=== PATIENT | female | born 1970 | race Caucasian/White ===

== ENCOUNTER 2018-10-06 14:31 | Emergency (ER) | payer OTHER ==
[~2018-10-06] VITALS: Ht 170.2 cm; Wt 113.4 kg
[~2018-10-06 14:31] MED LIST: BIRTH CONTROL
[2018-10-06] MEDS ORDERED: IV NORMAL SALINE 1000 ML BAG IV ONE (15:00)
[2018-10-06] MEDS ORDERED: KETOROLAC TROMETHAMINE 15 MG INJ IV ONE (15:00)
[2018-10-06] MEDS ORDERED: ONDANSETRON 4 MG/2 ML VIAL IV ONE (15:00)
[2018-10-06] MEDS ORDERED: HYDROMORPHONE 1 MG/1 ML DISP.SYRIN IV ONE (15:00)
[2018-10-06] MEDS ORDERED: HYDROMORPHONE 2 MG/1 ML DISP.SYRIN ONE (15:06)
[2018-10-06] MEDS ORDERED: KETOROLAC TROMETHAMINE 30 MG INJ ONE (15:06)
[2018-10-06] MEDS ORDERED: ONDANSETRON 4 MG/2 ML VIAL ONE ×3 (15:06→17:14)
[2018-10-06 15:10] LABS: *BILIRUBIN,URIN NEGATIVE (NEGATIVE); *BLOOD, URINE 2+ (NEGATIVE); *CLARITY,URINE CLOUDY (CLEAR); *COLOR,URINE YELLOW (YELLOW); *KETONES,URINE NEGATIVE (NEGATIVE); *PROTEIN,URINE TRACE (NEGATIVE); *UROBILINOGEN,URINE 0.2 E.U./dl (NORMAL); LEUKOCYTE ESTERASE ,URINE 1+ (NEGATIVE); NITRITE, URINE NEGATIVE (NEGATIVE); PH,URINE 6.5 (5.0-8.0); UGLUCOSE NEGATIVE (NEGATIVE)
[2018-10-06 15:13] LABS: *URINE HCG, QUAL NEGATIVE (NEGATIVE)
[2018-10-06 15:20] LABS: BACTERIA,URINE MANY /HPF (NONE SEEN); RBC,URINE 20-50 /HPF (0-3); SQUAMOUS EPITHELIAL CELL,UR MODERATE /HPF (NONE SEEN)
[2018-10-06 15:21] LABS: CALCIUM OXALATE CRYSTALS,UR FEW /HPF (NONE SEEN); MUCUS,URINE MODERATE /LPF (0-FEW); URINE AMORPHOUS PHOSPHATES MODERATE /HPF
--- NOTE | 2018-10-06 15:32 | NUR ---
Patient is resting comfortably in bed with eyes closed, NAD noted.
--- NOTE | 2018-10-06 15:45 | NUR ---
Pt out of ER for CT.
--- NOTE | 2018-10-06 16:08 | NUR ---
Pt back from Ct, state pain is gone.
[2018-10-06] MEDS ORDERED: CEFTRIAXONE 1 G VIAL ONE (16:24)
[2018-10-06] MEDS ORDERED: CEFTRIAXONE 1 G in IV DEXTROSE 5% 50 ML IV ONE (16:30)
[2018-10-06] MEDS ORDERED: ONDANSETRON IV *ER 4 MG/2 ML VIAL IV ONE (17:15)
--- NOTE | 2018-10-06 17:59 | NUR ---
IV removed. Catheter intact and site benign. Pressure and 4x4 gauze applied to site. No bleeding noted.
--- NOTE | 2018-10-06 18:00 | NUR ---
Patient discharged to home in stable conditon. Written and verbal after care instructions given. Patient verbalizes understanding of instructions. Pt left Er accompained by family.
[2018-10-06 18:04] VITALS: BP 104/66
== END 2018-10-06 18:05 | disposition home or self-care (01) ==
LOC: ER 14:31
DX: N20.0 Calculus of kidney (principal); N39.0 Urinary tract infection, site not specified
CPT/HCPCS: 74176; 81001; 84703; 87086; 96365; 96375; 96376; 99284; J0696; J1170; J1885; J2405 ×2; A4663; J3490; J7030

== ENCOUNTER 2021-04-30 06:47 | Emergency (ER) | payer OTHER ==
[~2021-04-30] VITALS: Ht 165.1 cm; Wt 72.6 kg
[2021-04-30] MEDS ORDERED: IV NORMAL SALINE 1000 ML BAG IV ONE (07:30)
--- NOTE | 2021-04-30 07:37 | NUR ---
[employer] assumes care (1st contact with patient) She is AOX4, c/o severe left flank pains for 15 years but worse this morning, hx of chronic renal stones s/p lithotripsies. Her respiration:easy, nonlabored & symmetrical. For blood draw, IV line & CT scans@this time.
[2021-04-30 08:13] LABS: HEMATOCRIT 39.8 % (31.2-41.9); MEAN CORPUSCULAR HEMOGLOBIN 29.1 uug (24.7-32.8); MEAN CORPUSCULAR VOLUME 87.3 fL (75.5-95.3); PLATELET COUNT (AUTO) 231 K/uL (179-408)
[2021-04-30 08:27] LABS: BILIRUBIN,DIRECT 0.1 mg/dL (0.0-0.2); BILIRUBIN,TOTAL 0.3 mg/dL (0.2-1.0); POTASSIUM 4.6 mmol/L (3.5-5.1); TOTAL PROTEIN, SERUM 8.2 g/dL (6.4-8.2)
[2021-04-30] MEDS: KETOROLAC TROMETHAMINE 15 MG INJ IVP ONE ×2 (08:27→08:30)
--- NOTE | 2021-04-30 08:30 | NUR ---
Patient refused IV Toradol. "It doesn't work. Only Dilaudid works." per patient's verbalization. notified.
[2021-04-30] MEDS ORDERED: KETOROLAC TROMETHAMINE 15 MG INJ ONE (08:35)
--- NOTE | 2021-04-30 08:44 | NUR ---
Patient is seen walking with steady gait in ER hallway, still for CT scan.
[2021-04-30] MEDS ORDERED: HYDROCORTISONE SOD SUCCINATE 250 MG/2 ML ML ONE (08:45)
[2021-04-30] MEDS ORDERED: IV NORMAL SALINE 250 ML IV ONE (08:46)
[2021-04-30] MEDS ORDERED: SWABABLE VALVE TRANSFER SET EA MC ONE (08:46)
[2021-04-30] MEDS ORDERED: IOHEXOL 300MG/ML 100 ML INFUS..BTL ONE (08:46)
[2021-04-30] MEDS ORDERED: ALBUTEROL SULFATE 2.5 MG/3 ML NEBU ONE (08:47)
[2021-04-30] MEDS ORDERED: ALBUTEROL SULFATE 2.5 MG/ 0.5 ML NEBU ONE (08:47)
--- NOTE | 2021-04-30 08:49 | NUR ---
Patient does not want to move until her IV Dilaudid is given, MD notified.
[2021-04-30] MEDS ORDERED: ONDANSETRON 4 MG/2 ML VIAL ONE ×2 (09:00→11:19)
[2021-04-30] MEDS ORDERED: ONDANSETRON 4 MG/2 ML VIAL IV ONE ×2 (09:00→11:15)
[2021-04-30] MEDS ORDERED: HYDROMORPHONE 1 MG/1 ML DISP.SYRIN IV ONE ×2 (09:00→10:15)
--- NOTE | 2021-04-30 09:00 | NUR ---
Vera arguelles in [facility] - 04/30/21 at [address] Youngerbedside
[2021-04-30] MEDS ORDERED: HYDROMORPHONE 1 MG/1 ML DISP.SYRIN ONE ×2 (09:01→10:20)
[2021-04-30 09:41] LABS: *BILIRUBIN,URIN NEGATIVE (NEGATIVE); *BLOOD, URINE 2+ (NEGATIVE); *CLARITY,URINE CLOUDY (CLEAR); *COLOR,URINE YELLOW (YELLOW); *KETONES,URINE NEGATIVE (NEGATIVE); *UROBILINOGEN,URINE 0.2 E.U./dl (NORMAL); LEUKOCYTE ESTERASE ,URINE TRACE (NEGATIVE); NITRITE, URINE NEGATIVE (NEGATIVE); UGLUCOSE NEGATIVE (NEGATIVE)
--- NOTE | 2021-04-30 09:58 | NUR ---
Patient is resting comfortably on gurney while reading her book on her personal electronic device, pending results & disposition, NAD. Extra warm blankets are on.
[2021-04-30 10:02] LABS: RBC,URINE 50-80 /HPF (0-3)
[2021-04-30 10:03] LABS: SQUAMOUS EPITHELIAL CELL,UR FEW /HPF (NONE SEEN)
[2021-04-30 10:08] LABS: BACTERIA,URINE FEW /HPF (NONE SEEN); MUCUS,URINE FEW /LPF (0-FEW)
[2021-04-30 10:09] LABS: CALCIUM OXALATE CRYSTALS,UR FEW /HPF (NONE SEEN)
[2021-04-30] MEDS ORDERED: CEFTRIAXONE 1 G in IV DEXTROSE 5% 50 ML IV ONE (10:15)
[2021-04-30] MEDS ORDERED: CEFTRIAXONE /D5W 50ML IVPB **ER PYXIS IV ONE (10:20)
--- NOTE | 2021-04-30 11:56 | NUR ---
Patient is sleeping, easily arousable with marked decreased left flank pains and wanting to go home were expressed, MD notified.
--- NOTE | 2021-04-30 12:00 | NUR ---
+ nausea again, MD notified.
[2021-04-30] MEDS ORDERED: OXYC-133 PO (12:09)
[2021-04-30] MEDS ORDERED: CEPH500C2 PO (12:09)
[2021-04-30] MEDS ORDERED: METOCLOPRAMIDE HCL 10 MG/2 ML VIAL ONE (12:09)
[2021-04-30] MEDS ORDERED: METOCLOPRAMIDE HCL 10 MG/2 ML VIAL IV ONE (12:15)
--- NOTE | 2021-04-30 12:27 | NUR ---
IV removed. Catheter intact and site benign. Pressure and 4x4 gauze applied to site. No bleeding noted. Patient discharged to home in stable condition with slow steady gait. Written and verbal after care instructions given to patient. Patient verbalized understanding & compliance of instructions. Stressed follow up with her urologist and primary doctor or return to ER for worsening s/s. Patient said that her adult daughter is driving her home.
== END 2021-04-30 12:29 | disposition home or self-care (01) ==
LOC: ER 06:48
DX: N13.6 Pyonephrosis (principal); N28.1 Cyst of kidney, acquired; Z98.84 Bariatric surgery status; Z84.1 Family history of disorders of kidney and ureter; G40.909 Epilepsy, unspecified, not intractable, without status epilepticus
CPT/HCPCS: 36415; 74177; 80048; 80076; 81001; 83605; 83690; 84484; 84702; 85025; 87040 ×2; 87086; 96361; 96374; 96375; 96376; 99284; J0696; J1170 ×2; J2405 ×2; J2765; Q9967; 70030-TC; A4663; J1720; J1885; J3490; J7030; J7050

== ENCOUNTER 2021-12-25 17:21 | Emergency (ER) | payer OTHER ==
[~2021-12-25] VITALS: Ht 165.1 cm; Wt 72.6 kg
[~2021-12-25 17:21] MED LIST changes: +CEPH500C2 PO; +OXYC-133 PO
[2021-12-25 18:24] LABS: *BILIRUBIN,URIN NEGATIVE (NEGATIVE); *BLOOD, URINE NEGATIVE (NEGATIVE); *CLARITY,URINE SLIGHTLY CLOUDY (CLEAR); *COLOR,URINE YELLOW (YELLOW); *KETONES,URINE NEGATIVE (NEGATIVE); *UROBILINOGEN,URINE 0.2 E.U./dl (NORMAL); LEUKOCYTE ESTERASE ,URINE TRACE (NEGATIVE); NITRITE, URINE NEGATIVE (NEGATIVE); UGLUCOSE NEGATIVE (NEGATIVE)
[2021-12-25 18:31] LABS: MEAN CORPUSCULAR HEMOGLOBIN 29.6 uug (24.7-32.8); MEAN CORPUSCULAR VOLUME 87.7 fL (75.5-95.3); PLATELET COUNT (AUTO) 234 K/uL (179-408)
[2021-12-25 18:39] LABS: POTASSIUM 3.8 mmol/L (3.5-5.1)
[2021-12-25 18:45] LABS: BILIRUBIN,DIRECT 0.1 mg/dL (0.0-0.2); BILIRUBIN,TOTAL 0.2 mg/dL (0.2-1.0); TOTAL PROTEIN, SERUM 8.2 g/dL (6.4-8.2)
[2021-12-25] MEDS ORDERED: HYDROMORPHONE 1 MG/1 ML DISP.SYRIN IV ONE (18:45)
[2021-12-25] MEDS ORDERED: KETOROLAC TROMETHAMINE 30 MG INJ IVP ONE (18:45)
[2021-12-25] MEDS ORDERED: ONDANSETRON 4 MG/2 ML VIAL IV ONE (18:45)
[2021-12-25] MEDS ORDERED: HYDROMORPHONE 1 MG/1 ML DISP.SYRIN ONE (19:06)
[2021-12-25] MEDS ORDERED: ONDANSETRON 4 MG/2 ML VIAL ONE (19:07)
[2021-12-25] MEDS ORDERED: KETOROLAC TROMETHAMINE 30 MG INJ ONE (19:07)
[2021-12-25] MEDS ORDERED: OXYC-128 PO (20:26)
[2021-12-25] MEDS ORDERED: ONDA4TAB5 PO (20:26)
--- NOTE | 2021-12-25 20:39 | NUR ---
Patient discharged to home in stable condition. Written and verbal after care instructions given. Patient verbalizes understanding of instructions. Stressed follow up or return to ER for worsening s/s. pt ambulates with steady gait. denies pain. pt getting picked up by .
[2021-12-25 21:05] VITALS: BP 116/65
[2021-12-25 21:09] LABS: BACTERIA,URINE MODERATE /HPF (NONE SEEN); RBC,URINE 0-3 /HPF (0-3); SQUAMOUS EPITHELIAL CELL,UR FEW /HPF (NONE SEEN)
== END 2021-12-25 21:06 | disposition home or self-care (01) ==
LOC: ER 17:21
DX: R10.9 Unspecified abdominal pain (principal); N20.0 Calculus of kidney; Z87.442 Personal history of urinary calculi; Z80.0 Family history of malignant neoplasm of digestive organs; Z84.1 Family history of disorders of kidney and ureter; Z86.69 Personal history of other diseases of the nervous system and sense organs
CPT/HCPCS: 36415; 76770; 80048; 80076; 81001; 83690; 85025; 87086; 96374; 96375; 99284; J1170; J1885; J2405; A4663

== ENCOUNTER 2022-08-13 18:48 | Emergency (ER) | payer OTHER ==
[~2022-08-13] VITALS: Ht 165.1 cm; Wt 79.4 kg
[~2022-08-13 18:48] MED LIST changes: +ONDA4TAB5 PO; +OXYC-128 PO
--- NOTE | 2022-08-13 19:50 | NUR ---
Dr. Salas at bedside. MSE in progress.
[2022-08-13 20:06] LABS: *BILIRUBIN,URIN NEGATIVE (NEGATIVE); *BLOOD, URINE TRACE (NEGATIVE); *CLARITY,URINE CLEAR (CLEAR); *COLOR,URINE YELLOW (YELLOW); *KETONES,URINE NEGATIVE (NEGATIVE); *UROBILINOGEN,URINE 0.2 E.U./dl (NORMAL); LEUKOCYTE ESTERASE ,URINE TRACE (NEGATIVE); NITRITE, URINE POSITIVE (NEGATIVE); UGLUCOSE NEGATIVE (NEGATIVE)
[2022-08-13 20:15] LABS: HEMATOCRIT 36.3 % (31.2-41.9); MEAN CORPUSCULAR VOLUME 88.8 fL (75.5-95.3); PLATELET COUNT (AUTO) 243 K/uL (179-408)
[2022-08-13 20:22] LABS: CREATININE 0.9 mg/dL (0.6-1.3); POTASSIUM 3.7 mmol/L (3.5-5.1)
[2022-08-13 20:28] LABS: BILIRUBIN,DIRECT 0.1 mg/dL (0.0-0.2); BILIRUBIN,TOTAL 0.3 mg/dL (0.2-1.0); TOTAL PROTEIN, SERUM 8.3 g/dL (6.4-8.2)
[2022-08-13] MEDS ORDERED: KETOROLAC TROMETHAMINE 30 MG INJ IVP ONE (20:45)
[2022-08-13] MEDS ORDERED: CEFTRIAXONE 1 G in IV DEXTROSE 5% 50 ML IV ONE (20:45)
[2022-08-13] MEDS ORDERED: HYDROMORPHONE 1 MG/1 ML DISP.SYRIN IV ONE (20:45)
[2022-08-13] MEDS ORDERED: IV NS 1000 ML 1,000 ML IV ONE (20:45)
[2022-08-13] MEDS ORDERED: ONDANSETRON 4 MG/2 ML VIAL IV ONE (20:45)
--- NOTE | 2022-08-13 20:53 | NUR ---
US at bedside.
[2022-08-13] MEDS ORDERED: CEFTRIAXONE /D5W 50ML IVPB **ER PYXIS IV ONE (20:57)
[2022-08-13] MEDS ORDERED: KETOROLAC TROMETHAMINE 30 MG INJ ONE (20:57)
[2022-08-13] MEDS ORDERED: ONDANSETRON 4 MG/2 ML VIAL ONE (20:57)
[2022-08-13] MEDS ORDERED: HYDROMORPHONE 1 MG/1 ML DISP.SYRIN ONE (20:58)
[2022-08-13 22:07] LABS: BACTERIA,URINE 4 /HPF (NONE SEEN); SQUAMOUS EPITHELIAL CELL,UR FEW /HPF (NONE SEEN)
[2022-08-13] MEDS ORDERED: NITR100C6 PO (23:13)
[2022-08-13] MEDS ORDERED: OXYC-128 PO (23:13)
--- NOTE | 2022-08-13 23:20 | NUR ---
Patient discharged to home in stable condition. A/O x4. NAD noted. Ambulatory with steady gait. Written and verbal after care instructions given. Patient verbalizes understanding of instructions. Stressed follow up or return to ER for worsening s/s.
[2022-08-13 23:21] VITALS: BP 118/80
== END 2022-08-13 23:20 | disposition home or self-care (01) ==
LOC: ER 19:23
DX: R10.31 Right lower quadrant pain (principal); N13.4 Hydroureter; N39.0 Urinary tract infection, site not specified; Z87.442 Personal history of urinary calculi; G40.909 Epilepsy, unspecified, not intractable, without status epilepticus; N28.1 Cyst of kidney, acquired; Z84.1 Family history of disorders of kidney and ureter
CPT/HCPCS: 99284; 96365; 96360; 96375; 76770; 80076; 80048; 81001; 83690; 85025; 87086; 36415; J0696; J1885; J2405; J1170; J7040; A4663

== ENCOUNTER 2024-05-07 19:43 | Emergency (ER) | payer BC, OTHER ==
[~2024-05-07] VITALS: Ht 152.4 cm; Wt 79.4 kg
[~2024-05-07 19:43] MED LIST changes: +NITR100C6 PO
[2024-05-07 20:46] LABS: BASOPHILS # (AUTO) 0.1 K/UL (0.0-0.2); BASOPHILS % (AUTO) 0.8 % (0.0-2.0); EOSINOPHILS # (AUTO) 0.2 K/uL (0.0-0.7); EOSINOPHILS % (AUTO) 2.5 % (0.0-7.0); HEMATOCRIT 41.2 % (31.2-41.9); HEMOGLOBIN 13.5 g/dL (10.9-14.3); LYMPHOCYTES # (AUTO) 3.4 K/uL (0.8-4.8); LYMPHOCYTES % (AUTO) 38.1 % (20.5-51.5); MEAN CORPUSCULAR HEMOGLOBIN 29.2 uug (24.7-32.8); MEAN CORPUSCULAR HGB CONC 33 g/dL (32.3-35.6); MEAN CORPUSCULAR VOLUME 88.9 fL (75.5-95.3); MONOCYTES # (AUTO) 0.9 K/uL (0.1-1.30); MONOCYTES % (AUTO) 10.6 % (0.0-11.0); NEUTROPHILS # (AUTO) 4.2 K/uL (1.8-8.9); PLATELET COUNT (AUTO) 224 K/uL (179-408); RED BLOOD CELL COUNT(AUTO) 4.63 MIL/uL (3.63-4.92); RED CELL DISTRIBUTION WIDTH 14.4 % (12.3-17.7); WHITE BLOOD COUNT (AUTO) 8.8 K/uL (3.8-11.8)
[2024-05-07 20:48] LABS: DIFFERENTIAL COMMENT 1
[2024-05-07 20:51] LABS: *BILIRUBIN,URIN NEGATIVE (NEGATIVE); *BLOOD, URINE 1+ (NEGATIVE); *CLARITY,URINE CLEAR (CLEAR); *COLOR,URINE Orange (YELLOW); *KETONES,URINE TRACE (NEGATIVE); *PROTEIN,URINE 2+ (NEGATIVE); LEUKOCYTE ESTERASE ,URINE 3+ (NEGATIVE); NITRITE, URINE POSITIVE (NEGATIVE); UGLUCOSE TRACE (NEGATIVE)
[2024-05-07 20:52] LABS: CALCIUM 9.7 mg/dL (8.5-10.1); CREATININE 0.8 mg/dL (0.6-1.3); POTASSIUM 3.7 mmol/L (3.5-5.1)
[2024-05-07 20:58] LABS: ALBUMIN 3.5 g/dL (3.4-5.0); BILIRUBIN,DIRECT 0.1 mg/dL (0.0-0.2); BILIRUBIN,TOTAL 0.3 mg/dL (0.2-1.0); TOTAL PROTEIN, SERUM 8.3 g/dL (6.4-8.2)
[2024-05-07 21:02] LABS: BACTERIA,URINE MANY /HPF (NONE SEEN); SQUAMOUS EPITHELIAL CELL,UR FEW /HPF (NONE SEEN)
[2024-05-07] MEDS ORDERED: HYDROMORPHONE 1 MG/1 ML DISP.SYRIN ONE (21:42)
[2024-05-07] MEDS ORDERED: ONDANSETRON 4 MG/2 ML VIAL ONE (21:42)
[2024-05-07] MEDS: ONDANSETRON 4 MG/2 ML VIAL IV ONE (21:44)
[2024-05-07] MEDS: HYDROMORPHONE 1 MG/1 ML DISP.SYRIN IV ONE (21:45)
[2024-05-07] MEDS: IV NORMAL SALINE 1000 ML BAG IV ONE (22:15)
[2024-05-07] MEDS: CEFTRIAXONE 2 G in IV DEXTROSE 5% 100 ML IV ONE (22:35)
[2024-05-07] MEDS ORDERED: CEFTRIAXONE /D5W 50ML IVPB **ER PYXIS IV ONE (22:44)
[2024-05-08] MEDS ORDERED: OXYC-128 PO (02:01)
[2024-05-08 02:33] VITALS: BP 128/78; TEMP 97.7; O2SAT 99
== END 2024-05-08 02:30 | disposition home or self-care (01) ==
LOC: ER 19:45
DX: N13.2 Hydronephrosis with renal and ureteral calculous obstruction (principal); N39.0 Urinary tract infection, site not specified; R10.30 Lower abdominal pain, unspecified; G40.909 Epilepsy, unspecified, not intractable, without status epilepticus; Z87.442 Personal history of urinary calculi; Z98.890 Other specified postprocedural states; Z79.891 Long term (current) use of opiate analgesic; Z79.899 Other long term (current) drug therapy; Z88.8 Allergy status to other drugs, medicaments and biological substances
CPT/HCPCS: 36415; 83690; 85025; A4606; A4663; J0696; J1170; J2405; J7040

== ENCOUNTER 2025-03-08 19:50 | Emergency (ER) | payer BC ==
[~2025-03-08] VITALS: Ht 165.1 cm; Wt 81.6 kg
[2025-03-08 20:10] LABS: *BILIRUBIN,URIN NEGATIVE (NEGATIVE); *BLOOD, URINE 3+ (NEGATIVE); *COLOR,URINE DARK YELLOW (YELLOW); *KETONES,URINE NEGATIVE (NEGATIVE); *PROTEIN,URINE 2+ (NEGATIVE); *UROBILINOGEN,URINE 0.2 E.U./dl (NORMAL); LEUKOCYTE ESTERASE ,URINE 2+ (NEGATIVE); NITRITE, URINE POSITIVE (NEGATIVE); UGLUCOSE NEGATIVE (NEGATIVE)
[2025-03-08 20:12] LABS: *CLARITY,URINE HAZY (CLEAR)
[2025-03-08 20:17] LABS: BASOPHILS % (AUTO) 0.3 % (0.0-2.0); EOSINOPHILS # (AUTO) 0.2 K/uL (0.0-0.7); EOSINOPHILS % (AUTO) 2.2 % (0.0-7.0); HEMOGLOBIN 13.7 g/dL (10.9-14.3); LYMPHOCYTES # (AUTO) 3.2 K/uL (0.8-4.8); LYMPHOCYTES % (AUTO) 41.5 % (20.5-51.5); MEAN CORPUSCULAR HEMOGLOBIN 29.4 uug (24.7-32.8); MEAN CORPUSCULAR HGB CONC 34 g/dL (32.3-35.6); MEAN CORPUSCULAR VOLUME 87.8 fL (75.5-95.3); MONOCYTES # (AUTO) 0.8 K/uL (0.1-1.30); MONOCYTES % (AUTO) 10.6 % (0.0-11.0); NEUTROPHILS # (AUTO) 3.5 K/uL (1.8-8.9); NEUTROPHILS % (AUTO) 45.4 % (38.5-71.5); PLATELET COUNT (AUTO) 229 K/uL (179-408); RED BLOOD CELL COUNT(AUTO) 4.66 MIL/uL (3.63-4.92); RED CELL DISTRIBUTION WIDTH 13.8 % (12.3-17.7); WHITE BLOOD COUNT (AUTO) 7.8 K/uL (3.8-11.8)
[2025-03-08 20:21] LABS: DIFFERENTIAL COMMENT 1
[2025-03-08] MEDS ORDERED: MORPHINE SULFATE 4 MG/1 ML DISP.SYRIN ONE (20:28)
[2025-03-08] MEDS ORDERED: ONDANSETRON 4 MG/2 ML VIAL ONE ×2 (20:28→23:12)
[2025-03-08 20:30] LABS: ALBUMIN 3.5 g/dL (3.4-5.0); BILIRUBIN,TOTAL 0.3 mg/dL (0.2-1.0); CALCIUM 9.2 mg/dL (8.5-10.1); CREATININE 0.8 mg/dL (0.6-1.3); MAGNESIUM 1.8 mg/dL (1.8-2.4); TOTAL PROTEIN, SERUM 8.9 g/dL (6.4-8.2)
[2025-03-08 20:37] LABS: C-REACTIVE PROTEIN 0.73 mg/dL (0.00-0.30)
[2025-03-08 20:39] LABS: BACTERIA,URINE MANY /HPF (NONE SEEN); WBC,URINE 20-50 /HPF (0-3)
[2025-03-08 20:40] LABS: RBC,URINE 80-100 /HPF (0-3); SQUAMOUS EPITHELIAL CELL,UR FEW /HPF (NONE SEEN)
[2025-03-08] MEDS: MORPHINE SULFATE 4 MG/1 ML DISP.SYRIN IV ONE (20:41)
[2025-03-08] MEDS: IV NORMAL SALINE 500 ML BAG IV ONE (20:42)
[2025-03-08] MEDS: ONDANSETRON 4 MG/2 ML VIAL IV ONE ×2 (20:42→23:15)
[2025-03-08] MEDS ORDERED: CEFTRIAXONE /D5W 50ML IVPB **ER PYXIS IV ONE (21:09)
[2025-03-08] MEDS: CEFTRIAXONE 1 G in IV DEXTROSE 5% 50 ML IV ONE (21:22)
[2025-03-08] MEDS ORDERED: KETOROLAC TROMETHAMINE 15 MG INJ ONE (21:29)
[2025-03-08] MEDS ORDERED: HYDROMORPHONE 1 MG/1 ML DISP.SYRIN ONE (21:30)
[2025-03-08] MEDS: KETOROLAC TROMETHAMINE 15 MG INJ IVP ONE (21:39)
[2025-03-08] MEDS: TAMSULOSIN HCL 0.4 MG CAP.SR.24H PO ONE (21:39)
[2025-03-08] MEDS: HYDROMORPHONE 1 MG/1 ML DISP.SYRIN IV ONE (21:39)
[2025-03-08] MEDS: POTASSIUM CHLORIDE 20 MEQ TAB.PRT.SR PO ONE (21:39)
[2025-03-08] MEDS ORDERED: OXYC5TAB3 PO (22:02)
[2025-03-08] MEDS ORDERED: ONDA4TAB5 PO (22:02)
[2025-03-08] MEDS ORDERED: TAMS-3 PO (22:02)
[2025-03-08] MEDS ORDERED: CEPH500C2 PO (22:03)
[2025-03-08 23:45] VITALS: BP 123/73; O2SAT 98
== END 2025-03-08 23:45 | disposition home or self-care (01) ==
LOC: ER 19:50
DX: N39.0 Urinary tract infection, site not specified (principal); N20.0 Calculus of kidney; E87.6 Hypokalemia; K21.9 Gastro-esophageal reflux disease without esophagitis; Z79.3 Long term (current) use of hormonal contraceptives; Z87.442 Personal history of urinary calculi; Z98.84 Bariatric surgery status; Z86.69 Personal history of other diseases of the nervous system and sense organs
CPT/HCPCS: 99285; 74176; 96365; 96375; 80053; 81001; 83735; 85025; 84145; 86140; 87086; 36415; 96376; J1885; J0696; J2405 ×2; J1171; J2270; A4606; A4663